=== PATIENT | female | born 2000 | race Two or more races ===

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

== ENCOUNTER 2023-04-27 18:17 | Emergency (ER) | payer MEDICAID ==
[~2023-04-27] VITALS: Ht 157.5 cm; Wt 55.0 kg
[2023-04-27 19:00] VITALS: BP 100/61; PULSE 80; RESP 18; O2SAT 99
== END 2023-04-28 00:53 | disposition left against medical advice (07) ==
LOC: ER 18:17 → EDUNIT# 18:17 → EDBD 18:17 → ER 04-28 00:53
DX: M79.672 Pain in left foot (principal); Z53.21 Procedure and treatment not carried out due to patient leaving prior to being seen by health care provider
CPT/HCPCS: 73630